=== PATIENT | female | born 1995 | race Two or more races ===

== ENCOUNTER 2024-01-27 19:14 | Emergency (ER) | payer MEDICAID ==
[~2024-01-27] VITALS: Ht 170.2 cm; Wt 81.0 kg
[2024-01-27 19:48] VITALS: TEMP 98
[2024-01-27] MEDS ORDERED: HYDR-4062 PO (22:22)
[2024-01-27] MEDS ORDERED: IBUP-1492 PO (22:22)
[2024-01-27] MEDS: HYDROCODONE/ACETAMINOPHEN 5-325 MG TABLET PO ONE (22:33)
[2024-01-27] MEDS: IBUPROFEN 600 MG TABLET PO ONE (22:34)
[2024-01-27 22:55] VITALS: BP 130/82; PULSE 83; RESP 18
== END 2024-01-27 22:55 | disposition home or self-care (01) ==
LOC: EMS 19:14
DX: S92.351A Displaced fracture of fifth metatarsal bone, right foot, initial encounter for closed fracture (principal); X58.XXXA Exposure to other specified factors, initial encounter; Y93.89 Activity, other specified; Y92.89 Other specified places as the place of occurrence of the external cause; Y99.8 Other external cause status
CPT/HCPCS: 29515; 99283